=== PATIENT | male | born 1970 | race Caucasian/White ===

== ENCOUNTER 2021-07-02 10:50 | Outpatient (CLI) | payer OTHER | END 2021-07-02 10:51 | disposition home or self-care (01) | LOC: BICRAD 10:50 | PROVIDERS: ATTEND Nurse Practitioner Family | DX: S49.91XA Unspecified injury of right shoulder and upper arm, initial encounter (principal) ==

== ENCOUNTER 2021-07-26 11:04 | Outpatient (CLI) | payer OTHER | END 2021-07-26 11:05 | disposition home or self-care (01) | LOC: MRI 11:04 | PROVIDERS: ATTEND Nurse Practitioner Family | DX: S46.001D Unspecified injury of muscle(s) and tendon(s) of the rotator cuff of right shoulder, subsequent encounter (principal); S46.011A Strain of muscle(s) and tendon(s) of the rotator cuff of right shoulder, initial encounter; M67.813 Other specified disorders of tendon, right shoulder ==

== ENCOUNTER 2021-08-27 11:41 | Outpatient (CLI) | payer BC ==
[2021-08-27 13:21] LABS: #Basophils 0.1 10x3/uL (0.0-0.2); #Eosinphils 0.2 10x3/uL (0.0-0.5); #Neutrophils 6.8 10x3/uL (1.5-8.4); %Basophils 0.8 % (0.0-2.0); %Eosinophils 2.1 % (0.0-6.0); %Lymphocytes 23.8 % (18.0-47.0); %Monocytes 8.7 % (0.0-10.0); %Neutrophils 62.8 % (40.0-75.0); Hemoglobin 15.5 g/dL (13.5-17.5); Mean Corpuscular HGB CONC 32.4 g/dL (32.0-36.0); Mean Corpuscular Hemoglobin 27.6 pg (27.0-33.0); Mean Corpuscular Volume 85.4 fl (81.2-95.1); Mean Platelet Volume 10.1 fl (7.4-10.4); Platelet Count 316 10x3/uL (150-450); RBC Distribution Width 13.8 % (11.5-14.5); Red Blood Cell (RBC) Count 5.61 10x6/uL (4.32-5.72); White Blood Cell (WBC) Count 10.9 10x3/uL (3.5-10.5)
== END 2021-08-27 11:42 | disposition home or self-care (01) ==
LOC: LABBT 11:41
PROVIDERS: ATTEND Orthopaedic Surgery
DX: Z01.818 Encounter for other preprocedural examination (principal); M75.01 Adhesive capsulitis of right shoulder; S46.011A Strain of muscle(s) and tendon(s) of the rotator cuff of right shoulder, initial encounter; Z20.822 Contact with and (suspected) exposure to COVID-19
CPT/HCPCS: 85025; 93005; 93010; U0003; U0005

== ENCOUNTER 2021-08-30 05:45 | Day surgery (SDC) | payer OTHER ==
[2021-08-27 13:44] VITALS: BMI 31.5
[~2021-08-30 05:45] MED LIST: Ropivacaine 0.5% HCl/PF (150 MG/30 ML VIAL) ONE
[2021-08-30] MEDS ORDERED: Lidocaine 1% MPF 2 ML VIAL ONE (06:01)
[2021-08-30] MEDS ORDERED: fentaNYL Citrate/PF 100 MCG/2 ML SYRINGE ONE (06:15)
[2021-08-30] MEDS ORDERED: Dexamethasone 20 MG/5 ML VIAL ONE (06:45)
[2021-08-30] MEDS ORDERED: Lidocaine 1% PF 5 ML VIAL ONE (06:45)
[2021-08-30] MEDS ORDERED: Rocuronium Bromide 10 MG/ML (10ML VIAL) ONE (06:45)
[2021-08-30] MEDS ORDERED: diphenhydrAMINE 50 MG/ML VIAL ONE (06:45)
[2021-08-30] MEDS ORDERED: Ondansetron PF 4 MG/2 ML Vial ONE ×3 (06:45→08:07)
[2021-08-30] MEDS ORDERED: PROPOFOL 200 MG/20 ML VIAL ONE (06:45)
[2021-08-30] MEDS ORDERED: PHENYLEPHRINE-NS 100 MCG/ML 10 ML SYRINGE ONE (06:45)
[2021-08-30] MEDS ORDERED: ePHEDrine 50 MG/ML VIAL ONE (06:45)
[2021-08-30] MEDS ORDERED: Fentanyl 100 MCG/2 ML VIAL ONE (06:47)
[2021-08-30] MEDS ORDERED: Midazolam HCl 2 mg/2 ml Vial ONE (06:47)
[2021-08-30] MEDS ORDERED: Lidocaine 1% w/Epinephrine 1:100K 20 ML VIAL ONE (06:50)
[2021-08-30] MEDS ORDERED: Clindamycin/D5W 900 mg/50 ml Premix Bag ONE (06:57)
[2021-08-30] MEDS ORDERED: Scopolamine 1.5 mg/72 hour Patch ONE (07:32)
[2021-08-30] MEDS ORDERED: Zolpidem Tartrate 5 MG TAB PO PRN (08:15)
[2021-08-30] MEDS ORDERED: HYDROcodone/Acetaminophen 5/325 mg Tablet PO PRN ×2 (08:15)
[2021-08-30] MEDS ORDERED: Ondansetron PF 4 MG/2 ML Vial IVP PRN (08:15)
[2021-08-30] MEDS ORDERED: Ketorolac Tromethamine 30 MG/ML VIAL IVP PRN (08:15)
[2021-08-30] MEDS ORDERED: Ropivacaine 0.2% 550 ML 550 ML NERVE BLCK SCH (08:15)
[2021-08-30] MEDS ORDERED: traMADol HCl 50 MG TAB PO PRN ×2 (08:15)
[2021-08-30] MEDS ORDERED: Promethazine HCl 25 MG/ML VIAL IM PRN (08:15)
[2021-08-30] MEDS ORDERED: SUGAMMADEX SODIUM 200 MG/2 ML VIAL ONE (09:40)
[2021-08-30] MEDS ORDERED: Promethazine HCl 25 MG/ML VIAL ONE (10:31)
[2021-08-30] MEDS ORDERED: PROPOFOL 20 ML ONE (11:28)
== END 2021-08-30 14:24 | disposition home or self-care (01) ==
LOC: SDC 05:45
PROVIDERS: ATTEND Orthopaedic Surgery
PROC: 0RHJ04Z Insertion of Internal Fixation Device into Right Shoulder Joint, Open Approach (ICD-10-PCS; principal; 2021-08-30)
PROC: 0LM14ZZ Reattachment of Right Shoulder Tendon, Percutaneous Endoscopic Approach (ICD-10-PCS; principal; 2021-08-30)
PROC: 3E0T3BZ Introduction of Anesthetic Agent into Peripheral Nerves and Plexi, Percutaneous Approach (ICD-10-PCS; principal; 2021-08-30)
PROC: 0RNJ4ZZ Release Right Shoulder Joint, Percutaneous Endoscopic Approach (ICD-10-PCS; principal; 2021-08-30)
PROC: 0LS30ZZ Reposition Right Upper Arm Tendon, Open Approach (ICD-10-PCS; principal; 2021-08-30)
DX: S46.011A Strain of muscle(s) and tendon(s) of the rotator cuff of right shoulder, initial encounter (principal); S46.221A Laceration of muscle, fascia and tendon of other parts of biceps, right arm, initial encounter; Z88.0 Allergy status to penicillin; Z88.4 Allergy status to anesthetic agent; W19.XXXA Unspecified fall, initial encounter; Y99.0 Civilian activity done for income or pay
CPT/HCPCS: A4306; C1713; J1100; J1200; J2250; J2405; J2550; J2704; J2795; J3010; J3490